=== PATIENT | female | born 1995 | race American Indian/Alaskan Native ===

== ENCOUNTER 2022-10-08 22:04 | Emergency (ER) | payer SELFPAY ==
[2022-10-08] MEDS ORDERED: fentaNYL 100 MCG/2 ML SDV IVPUSH ONE (22:13)
[2022-10-08] MEDS ORDERED: Alum Hydroxide/Mag Hydroxide 15 ML, Lidocaine 2% 15 ML PO ONE ×2 (22:13)
[2022-10-08 22:37] LABS: ESTIMATED GFR 122 mL/min (>60)
== END 2022-10-08 23:15 | disposition home or self-care (01) ==
LOC: FB.ED 22:04
DX: O99.891 Other specified diseases and conditions complicating pregnancy (principal); R10.13 Epigastric pain; Z3A.28 28 weeks gestation of pregnancy
CPT/HCPCS: 36415; 80053; 83690; 85025; 96374; 99284; A9270; J3010

== ENCOUNTER 2022-11-25 04:36 | Emergency (ER) | payer OTHER ==
[2022-11-25] MEDS ORDERED: Terbutaline 1 MG/ML SDV SUBCUT ONE (04:48)
[2022-11-25] MEDS ORDERED: Sodium Chloride 0.9% 1,000 ML IV SCH (05:10)
[2022-11-25] MEDS ORDERED: Oxytocin 10 Units/1 ML SDV ONE (05:36)
[2022-11-25 18:51] VITALS: BP 132/66; PULSE 78
== END 2022-11-25 11:20 ==
LOC: FB.ED 04:36
DX: O80 Encounter for full-term uncomplicated delivery (principal); Z37.0 Single live birth; Z3A.35 35 weeks gestation of pregnancy
CPT/HCPCS: 82947; 96372; 99285; J2590; J3105; J7030

== ENCOUNTER 2023-11-01 20:15 | Emergency (ER) | payer SELFPAY | END 2023-11-01 21:10 | LOC: FB.ED 20:15 | DX: O62.9 Abnormality of forces of labor, unspecified (principal); Z3A.36 36 weeks gestation of pregnancy | CPT/HCPCS: 99285 ==